=== PATIENT | female | born 1995 | race Caucasian/White ===

== ENCOUNTER → 2023-08-20 09:23 | Outpatient (REF) | payer BC, SELFPAY | LOC: HWRAD 09:23 | PROVIDERS: ATTENDING PHYSICIAN Family Medicine | DX: R79.89 Other specified abnormal findings of blood chemistry (principal) | CPT/HCPCS: 76770 ==

== ENCOUNTER → 2025-03-26 13:12 | Outpatient (REF) | payer BC, SELFPAY | LOC: RAD 13:12 | PROVIDERS: ATTENDING PHYSICIAN Family Medicine | DX: R10.30 Lower abdominal pain, unspecified (principal); R10.9 Unspecified abdominal pain | CPT/HCPCS: 76830; 76856 ==